=== PATIENT | male | born 1955 | race Caucasian/White ===

== ENCOUNTER 2022-04-25 09:27 | Day surgery (SDC) | payer OTHER ==
--- NOTE | 2022-04-21 14:53 | RAD REPORT ---
EXAM DESCRIPTION: Juan Spears (2 Views)04/21/2022 2:48 pm CLINICAL HISTORY: Preop for urolift surgery/hypertension COMPARISON: 2018 FINDINGS: The lungs appear clear of acute infiltrate. The heart is normal size IMPRESSION: No acute abnormalities displayed
[2022-04-21 15:23] LABS: Absolute Lymphocytes (CBC) 1.2 K/uL (0.7-4.9); Hematocrit 42.6 % (39.6-49.0); Lymphocytes % 20.2 % (15.3-44.8); MCV 85.5 fL (80-100); MPV 8.2 fL (7.6-11.3); RBC Red Blood Cell Count 4.98 M/uL (4.33-5.43)
[2022-04-21 15:24] LABS: Protime INR 1.04
[2022-04-21 15:33] LABS: SARS-CoV-2 Antigen Rapid Res Negative (Negative)
[2022-04-21 15:39] LABS: Potassium 3.7 mmol/L (3.5-5.1)
[~2022-04-25 09:27] MED LIST: Gentamicin Inj 200 MG in NA CHLORIDE 0.9% 100 ML IV ONE
[2022-04-25] MEDS ORDERED: CLINDAMYCIN 600MG/D5W 600 MG/50 ML BAG IV ONE (09:46)
[2022-04-25] MEDS ORDERED: Ringers Lactate 1,000 ML IV ONE (09:46)
[2022-04-25] MEDS ORDERED: MIDAZOLAM HCL 2 MG/2 ML INJ ONE (12:33)
[2022-04-25] MEDS ORDERED: propofoL 200 MG/20 ML VIAL IV ONE (12:33)
[2022-04-25] MEDS ORDERED: FENTANYL CITR 100 MCG/2 ML ONE (12:33)
[2022-04-25] MEDS ORDERED: LIDOCAINE 1% MPF 5 ML VIAL ONE (12:33)
[2022-04-25] MEDS ORDERED: KETOROLAC 30 MG/ML INJ ONE (13:34)
[2022-04-25] MEDS ORDERED: GLYCOPYRROLATE 0.2 MG/ML SYR ONE (13:36)
[2022-04-25] MEDS ORDERED: CODEINE 30MG/APAP 300MG TAB PO PRN (14:25)
[2022-04-25] MEDS ORDERED: PHENAZOPYRIDINE 100MG TAB PO ONE ×2 (14:25→15:25)
[2022-04-25 14:39] VITALS: BP 119/76; O2SAT 100
[2022-04-25] MEDS ORDERED: NA CHLORIDE 0.9% 1,000 ML ONE (15:00)
[2022-04-25 15:20] VITALS: TEMP 96.7
[2022-04-25] MEDS ORDERED: CODEINE 30MG/APAP 300MG TAB ONE (15:25)
--- NOTE | 2022-04-25 15:44 | EKG ---
Test Date: 2022-04-21 Test Time: 14:27:43 Diamond Sorter: DEBBY MEASUREMENT RESULTS: Intervals: Rate: 85 IA: 212 QRSD: 90 QT: 374 QTc: 445 Mingus: P: 62 IA: 212 QRS: 58 T: 69 INTERPRETIVE STATEMENTS: Sinus rhythm with 1st degree AV block Otherwise normal ECG Compared to ECG 10/29/2006 08:35:17 First degree AV block now present Electronically Signed On 04-25-22 15:41:33 CDT by Hero Washburn
--- NOTE | 2022-04-26 03:16 | OP ---
Surgeon: CHASE SCHULTZ Preoperative Diagnosis: Benign prostatic hypertrophy with lower urinary tract obstruction and sympto ms. Postoperative Diagnosis: Benign prostatic hypertrophy with lower urinary tract obstruction and sympt oms. Principle Procedure: Prostatic urethral lift/UroLift, 9 implants used with 8 implants successfully p laced. Indication For Procedure: Mr. Inman is a 66-year-old gentleman, who presented to the [facility] with obstructive urinary symptoms refractory to medical therapy due to BPH. He had undergone a prost ate biopsy that revealed atypia and a prostate MRI that saw no suspicious lesions. We discussed the potential risk of undiagnosed prostate cancer, but at this point, treating his obstructive urinary sy mptoms was paramount. As a result, after cystoscopic evaluation revealing the anatomy of obstruction to the lateral lobar hypertrophy with an extended prostatic urethral length along with a small media n lobe that did abut the trigone, he was counseled that he was borderline in terms of likelihood of s uccess via the UroLift versus need for formal resection procedure like a bipolar TURP. Ultimately, g iven the more minimally invasive nature of the UroLift and an ability to preserve antegrade ejaculati on, he elected to UroLift. Procedure In Detail: The patient was consented in the preoperative holding area before being transfe rred to operative suite where general anesthesia was induced. He was given clindamycin and gentamici n 2-3 mg/kg IV antimicrobial prophylaxis, and pneumo boots were provided for DVT prophylaxis. He was placed in the lithotomy position, padded and secured to the table appropriately, and his genitalia w ere prepped using Hibiclens. He was draped in standard fashion, and the case was begun using the 20- Japanese sheath and visual obturator to traverse the urethra and enter his bladder. As had previously been noted, there was significant lateral lobar hypertrophy with an extended prostatic urethral lengt h and a median lobe without bulbous intravesical projection, though the lobe did abut the trigone. T he ureteral orifices were visible and the bladder was free of mucosal lesion. As a result, the first targeted location identified was within the left lateral wall of the prostate near the bladder neck. Targeting a position approximately 1.5 to 2 cm distal to the bladder neck on the left side, the fir st treatment implant was placed there by placing the distal tip of the delivery device angled lateral ly approximately 10 to 20 degrees to compress the lateral lobe. The trigger was pulled, thereby depl oying a needle containing the implant through the prostate. The needle was further advanced with add itional compression, and the trigger was again pulled retracting the needle allowing one into the imp lant to be delivered to the capsular surface of the prostate. The implant was then tensioned to assu re capsular seeding and removal a SLAC monofilament. The device was then angled back toward midline and slowly advanced proximally approximately 2 to 3 mm until cystoscopic verification of the monofila ment being centered in the delivery bay was present. The urethral in piece was then affixed to the m onofilament, thereby tailoring the size of the implant, and excess filament was then severed. The de livery device was then readvanced into the bladder, and the device was then replaced with an addition al implant delivery device. The next implant site was targeted contralaterally within the right ante rolateral lobe of the prostate approximately 1.5 to 2 cm distal to the bladder neck. An implant was delivered successfully there. So after the device was readvanced into the bladder, I exchanged the d elivery device for a visual obturator. I then surveyed the prostatic urethral channel, and despite t he presence of the median lobe, the lateralization of the anterior lateral lobes bilaterally did crea te a nice anterior channel due to the lack of any significant anterior prostatic urethral overhang at the level of the bladder neck. However, there was still significant lateral lobar hypertrophy exten ding into the mid zone and apical regions of the prostate. As a result, an additional implant was pl aced on the left side at the apex at the level of the verumontanum with a third implant targeted on t he right side at the level of the verumontanum. Unfortunately, that fourth implant did strike the royce ne and failed to deliver the needle through the surface of the prostate resulting in inability to del iver the implant. As a result, a fifth implant was required resulting in 4 implants being placed at the bladder neck bilaterally and at the verumontanum bilaterally. I then surveyed the channel again using the visual obturator, and there was still significant mid gland zone lateral lobar hypertrophy mostly extending from the left side as good lateralization of the lateral lobes had been achieved wit h the 2 implants placed on the right side. As a result, I started by placing an additional implant f or the bladder neck, but more anteriorly on the left side. This did open the channel more at the lev el of the bladder neck, but an additional implant was also required at the apex even more distal to t he implant placed at the level of the verumontanum previously. At this point, 6 implants had been pl aced, but there was still significant lateral tissue mostly emanating from the left side. As a resul t, in the mid zone of the prostate, I placed a fifth implant on the left side, which did result in ni ce lateralization of the majority of the channel, but despite this, on further assessment with visual obturator, nearest the bladder neck, there was still some intraluminal projecting tissue that was ca using a degree of apparent obstruction when viewed relative to the mild degree of tissue remnant comi ng from the right side. As a result, after assessment of the quality of the tissue on both sides, si nce the tissue was more friable on the right side and would more readily respond to coaptation by the implant on the left, I placed a 6th implant on the left side lateralizing the remainder of the obstr ucting tissue between the bladder neck and the mid gland portion of the left lateral lobe of the pros tran, which did result in a nice continuous channel from the verumontanum all the way into the bladde r. As a result, in the end, 6 implants were placed on the left side, 2 implants were placed on the r ight side, for a total of 8 implants placed, and 1 bone strike did occur with the result being 9 impl ants used. In the end, because there was some ongoing significant degree of gross prostatic urethral bleeding, once I placed a 20-Japanese 3 way Bowers catheter into his bladder with ease, I irrigated his bladder and only received light pink urine. I thus connected the catheter to slow drip CBI to try t o flush the bladder for a period of time planning to wean the CBI to see if we could discharge him bragg ccessfully from the recovery room. Complications: None. Discharge Disposition: We will wean the CBI, and if less successfully able to discontinue CBI, he wi ll be discharged with the catheter to a leg bag with a floor bag for nighttime use. Given the number of implants required, I would recommend he keep the catheter for at least 24 to 48 hours, likely rem oving it on Thursday morning. If he is successfully able to void within 6 hours of the catheter bein g removed on , then he may simply follow up in about a month's time. Subsequent followup will be established 6 months later for recheck of his PSA and a re-assessm ent of his risk of prostate cancer. JEFF/ERIKA Voice ID: [id number] Report ID: [id number]
== END 2022-04-25 16:28 | disposition home or self-care (01) ==
LOC: OR 09:27
PROVIDERS: ATTEND Urology
PROC: 0T7D8DZ Dilation of Urethra with Intraluminal Device, Via Natural or Artificial Opening Endoscopic (ICD-10-PCS; principal; 2022-04-25 11:45)
DX: N40.1 Benign prostatic hyperplasia with lower urinary tract symptoms (principal); Z20.822 Contact with and (suspected) exposure to COVID-19; N35.919 Unspecified urethral stricture, male, unspecified site
CPT/HCPCS: 93005; 87088; 85025; 87086; 80048; 36415; 85610; 71046; 87811; 52441; 52442 ×4; J2704; J2001; J1580; J2250; J3010; J7120; J7030